=== PATIENT | female | born 1990 | race African-American/Black ===

== ENCOUNTER 2018-10-01 16:17 | Emergency (ER) | payer SELFPAY ==
[~2018-10-01] VITALS: Ht 157.5 cm; Wt 54.4 kg
[2018-10-01 16:23] VITALS: BP 115/58
[2018-10-01 16:57] LABS: BILIRUBIN,URINE NEGATIVE (NEG); CLARITY,URINE CLEAR; COLOR,URINE YELLOW; NITRITE,URINE NEGATIVE (NEG); PH,URINE 6.5; PROTEIN,URINE NEGATIVE (NEG-TRACE)
[2018-10-01 17:06] LABS: BARBITURATES NEG (NEG); BENZODIAZEPINES NEG (NEG); CANNABINOIDS POS (NEG); COCAINE NEG (NEG); METHADONE NEG (NEG); OPIATES NEG (NEG); PHENCYCLIDINE NEG (NEG)
[2018-10-01 17:07] LABS: AMPHETAMINE/METHAMPHETAMINE NEG (NEG)
[2018-10-01 17:11] LABS: BACTERIA,URINE FEW /HPF (0-FEW); RBC,URINE OCC /HPF (0-2); SQUAMOUS EPITHELIAL CELL,UR OCC /LPF
--- NOTE | 2018-10-01 17:28 | RAD ---
CHEST PA LATERAL History: Chest pain Comparison: 01/27/2008 Findings: 2 views of the chest are submitted. There is no new infiltrate, pleural fluid, pneumothorax. There is some fullness in the region of azygous although radiographic appearance is unchanged. Impression: 1. No acute radiographic abnormality is identified. There is again nonspecific opacity in the region of the azygous which could be due to underlying lymphadenopathy or the vasculature although similar comparing with 2007 exam. Electronically signed by: Francois Vincent MD (10/01/2018 5:25 PM) [facility]
[2018-10-01] MEDS ORDERED: SULF1TAB24 PO (17:45)
[2018-10-01] MEDS ORDERED: DICL50TA4 PO (17:45)
[2018-10-01] MEDS ORDERED: CYCL10TA2 PO (17:45)
--- NOTE | 2018-10-01 17:46 | PHYS DOC ---
Past Medical History Past Medical History: No Pertinent History Past Surgical History: No Surgical History Alcohol Use: Occasionally Drug Use: Marijuana Adult General Chief Complaint Chief Complaint: GENERALIZED BODY ACHES [facility] HPI Patient is a 28 year old female with no significant medical history who presents to the ED today complaining of generalized body aches that began yesterday after having a birthday alliance party for her daughter. Patient states her symptoms got worse this morning when she was going to work. She states she was driving and everything was hurting including her chest. She rated her pain is mild worse on movement throughout her body. Denies anything exacerbating or relieving her pain that she states she felt some pain when touching her chest area diffusely. She is not on any blood thinners, she is not on any cont rol, she has not had any recent hospitalizations. She does not have any family or personal history of PEs or DVTs. Review of Systems Review of Systems Constitutional: Denies fever or chills [] Eyes: Denies change in visual acuity, redness, or eye pain [] HENT: Denies nasal congestion or sore throat [] Respiratory: Denies cough or shortness of breath [] Cardiovascular: No additional information not addressed in HPI [] GI: Denies abdominal pain, nausea, vomiting, bloody stools or diarrhea [] : Denies dysuria or hematuria [] Musculoskeletal: Reports generalized pain throughout the body Integument: Denies rash or skin lesions [] Neurologic: Denies headache, focal weakness or sensory changes [] All other systems were reviewed and found to be within normal limits, except as documented in this note. Allergies Allergies Allergies Coded Allergies Type Severity Reaction Last Updated Verified No Known Drug Allergies 10/01/18 No Physical Exam Physical Exam Constitutional: Well developed, well nourished, no acute distress, non-toxic appearance. [] HENT: Normocephalic, atraumatic, bilateral external ears normal, oropharynx moist, no oral exudates, nose normal. [] Eyes: PERRLA, EOMI, conjunctiva normal, no discharge. [] Neck: Normal range of motion, no tenderness, supple, no stridor. [] Cardiovascular:Heart rate regular rhythm, no murmur. Reproducible tenderness throughout the chest area on palpation. Lungs & Thorax: Bilateral breath sounds clear to auscultation [] Abdomen: Bowel sounds normal, soft, no tenderness, no masses, no pulsatile masses. [] Skin: Warm, dry, no erythema, no rash. [] Back: No tenderness, no CVA tenderness. [] Extremities: No tenderness, no cyanosis, no clubbing, ROM intact, no edema. [] Neurologic: Alert and oriented X 3, normal motor function, normal sensory function, no focal deficits noted. [] Psychologic: Affect normal, judgement normal, mood normal. [] Current Patient Data Vital Signs Vital Signs Date Time Temp Pulse Resp B/P (MAP) Pulse Ox O2 Delivery O2 Flow Rate FiO2 10/01/18 16:23 98.4 73 20 115/58 (77) 99 Room Air 98.4 Lab Values Laboratory Tests Test 10/01/18 16:36 10/01/18 16:39 Urine Color Yellow Urine Clarity Clear Urine pH 6.5 Urine Specific Abbot >=1.030 Urine Protein Negative mg/dL (NEG-TRACE) Urine Glucose (UA) Negative mg/dL (NEG) Urine Ketones (Stick) Negative mg/dL (NEG) Urine Blood Negative (NEG) Urine Nitrite Negative (NEG) Urine Bilirubin Negative (NEG) Urine Urobilinogen Dipstick 1.0 mg/dL (0.2 mg/dL) Urine Leukocyte Esterase Small (NEG) Urine RBC Occ /HPF (0-2) Urine WBC 1-4 /HPF (0-4) Urine Squamous Epithelial Cells Occ /LPF Urine Bacteria Few /HPF (0-FEW) Urine Mucus Mod /LPF Urine Opiates Screen Neg (NEG) Urine Methadone Screen Neg (NEG) Urine Barbiturates Neg (NEG) Urine Phencyclidine Screen Neg (NEG) Urine Amphetamine/Methamphetamine Neg (NEG) Urine Benzodiazepines Screen Neg (NEG) Urine Cocaine Screen Neg (NEG) Urine Cannabinoids Screen Pos (NEG) Urine Ethyl Alcohol Neg (NEG) POC Urine HCG, Qualitative Hcg negative (Negative) EKG EKG [] Radiology/Procedures Radiology/Procedures [] Course & Med Decision Making Course & Med Decision Making Pertinent Labs and Imaging studies reviewed. (See chart for details) This is a 28-year-old female patient who presents to the ED today complaining of generalized pain throughout her body including her chest that began yesterday after having a birthday alliance party for her daughter. Patient has a PERC score of 0. Her chest pain is reproducible. Urine analysis is positive for UTI, chest x-ray negative for any acute findings. Negative urine hCG. Patient was given prescription for Bactrim for 3 days. Discharged with cyclobenzaprine and the plafond. Follow-up with her PCP in 1-2 weeks. [place] Disclaimer [place] Disclaimer This electronic medical record was generated, in whole or in part, using a voice recognition dictation system. Departure Departure Impression: Primary Impression: Urinary tract infection Additional Impressions: Costochondritis, acute Musculoskeletal pain Disposition: HOME, SELF-CARE Condition: STABLE Referrals: NON,STAFF (PCP) KAYLI CHRISTENSEN MD follow up in 1-2 weeks Patient Instructions: Chest Pain (Nonspecific), [id number], Costochondritis, [id number] Additional Instructions: You were evaluated in the emergency room, your urine noted to have urinary tract infection. We gave her prescription antibiotics take them as prescribed until completed. Take the rest of the pain medicine as needed for pain. Follow-up with your own doctor in 1-2 weeks. Scripts Cyclobenzaprine Hcl (CYCLOBENZAPRINE HCL) 10 Mg Tablet 1 TAB PO TID, #30 TAB Prov: MIRELLA FAIR APRN 10/01/18 Diclofenac Sodium (DICLOFENAC SODIUM) 50 Mg Tablet.dr 1 TAB PO BID, #20 TAB 0 Refills Prov: MIRELLA FAIR APRN 10/01/18 Sulfamethoxazole/Trimethoprim (BACTRIM DS TABLET) 1 Each Tablet 1 TAB PO BID, #6 TAB Prov: MIRELLA FAIR APRN 10/01/18 Problem Qualifiers Primary Impression: Urinary tract infection Urinary tract infection type: site unspecified Hematuria presence: without hematuria Qualified Codes: N39.0 - Urinary tract infection, site not specified MIRELLA FAIR APRN Oct 01, 2018 17:46
== END 2018-10-01 17:47 | disposition home or self-care (01) ==
LOC: ER 16:17
DX: N39.0 Urinary tract infection, site not specified (principal); M94.0 Chondrocostal junction syndrome [Tietze]
CPT/HCPCS: 71046; 80307; 81001; 81025; 99285-25